=== PATIENT | female | born 1960 | race Caucasian/White ===

== ENCOUNTER → 2024-10-03 13:25 | Outpatient (BNVA) | payer OTHER, SELFPAY | PROVIDERS: Referring Provider Nurse Practitioner; Visit Provider Specialist | DX: R41.3 Other amnesia (principal) | CPT/HCPCS: 36415; 82542; 82607; 82746; 83520; 85651 ==

== ENCOUNTER 2024-10-10 13:33 | Outpatient (CLI) | payer OTHER, SELFPAY ==
--- NOTE | 2024-10-10 13:45 | MR_ITS ---
WS: [id number] MRI HEAD WITHOUT CONTRAST TECHNIQUE: Sagittal T1, T2 axial, T2 axial FLAIR, axial and coronal T1 images, axial susceptibility weighted imaging, axial diffusion weighted images, and coronal T2 images were obtained. CLINICAL INFORMATION: R41.3 - Other amnesia COMPARISON: None. FINDINGS: No evidence of restricted diffusion to suggest acute ischemia. Ventricular system and basilar cisterns are patent. No significant small vessel changes. No suspicious intracranial signal abnormalities. Mild supratentorial parenchymal volume loss more prominent in the parietal lobes. Normal posterior fossa. Normal vascular flow voids at the skull base. No extra- axial fluid collections. No evidence of mass or mass effect. Paranasal sinuses and mastoid air cells are well aerated. No hemosiderin on susceptibly weighted images. Normal optic chiasm and pituitary infundibulum. Mild symmetric atrophy in the mesial temporal lobes and hippocampal formations. No signal abnormalities. MR/MR head wo con* [id number] IMPRESSION: 1. No evidence of restricted diffusion to suggest acute ischemia. 2. No significant small vessel changes. 3. No suspicious intracranial signal abnormalities. 4. Mild supratentorial volume loss more prominent in the parietal lobes. 5. Mild symmetric atrophy mesial temporal lobes and hippocampal formations. 6. No other suspicious findings.
== END 2024-10-10 13:34 | disposition home or self-care (01) ==
LOC: RAD 13:33
PROVIDERS: Visit Provider Specialist
DX: R41.3 Other amnesia (principal)
CPT/HCPCS: 70551